=== PATIENT | female | born 1995 | race Caucasian/White ===

== ENCOUNTER 2017-03-21 19:49 | Emergency (ER) | payer BC ==
[~2017-03-21] VITALS: Ht 160 cm; Wt 77.1 kg
[~2017-03-21 19:49] MED LIST: ABILIFY5 MG PO; AMOXICILLIN500 M2 PO; AMOXIL250 MG/5 M PO; AMOXIL500 MG PO; BENADRYL25 MG PO; BUSPAR5 MG PO; CLARITIN10 MG PO; IBU-6600 MG PO; MACROBID100 M1 PO; OMNICEF125 MG/5 M PO; PREDNISONE5 MG PO; TYLENOL W/CODE480 ML PO; WELLBUTRIN75 MG PO; ZANTAC 150150 MG PO
[2017-03-21 19:57] VITALS: BP 127/89
[2017-03-21] MEDS ORDERED: MEDROL DOSEPAK4 MG PO (22:25)
[2017-03-21] MEDS ORDERED: PEPCID20 MG PO (22:25)
[2017-03-21] MEDS ORDERED: BENADRYL ALLERG25 M5 PO (22:25)
== END 2017-03-21 23:40 | disposition home or self-care (01) ==
LOC: ED 19:49
DX: T78.40XA Allergy, unspecified, initial encounter (principal); Z88.2 Allergy status to sulfonamides; Z79.899 Other long term (current) drug therapy; X58.XXXA Exposure to other specified factors, initial encounter

== ENCOUNTER 2017-12-10 13:26 | Emergency (ER) | payer BC ==
[~2017-12-10] VITALS: Ht 157.4 cm; Wt 82.1 kg
[~2017-12-10 13:26] MED LIST changes: +BENADRYL ALLERG25 M5 PO; +MEDROL DOSEPAK4 MG PO; +PEPCID20 MG PO
[2017-12-10 13:45] VITALS: BP 137/82
[2017-12-10 14:21] LABS: BASO % 0.3 % (0.0-1.0); EOS % 0.3 % (1.0-4.0); HEMATOCRIT 42.4 % (37.0-47.0); HEMOGLOBIN 14.1 g/dl (12.0-16.0); LYMPH # 1.2 10*3/uL (1.3-4.4); LYMPH % 12.9 % (27.0-41.0); MEAN CELL VOLUME 85.5 fl (81.0-99.0); MEAN CORPUSCULAR HGB 28.4 pg (27.0-31.0); MEAN CORPUSCULAR HGB CONC 33.3 g/dl (33.0-37.0); MEAN PLATELET VOLUME 10.7 fl (9.6-12.3); MONO # 0.4 10*3/uL (0.1-1.0); MONO % 4.7 % (3.0-9.0); NEUT # 7.6 10*3/uL (2.3-7.9); NEUT % 81.5 % (47.0-73.0); PLATELET COUNT AUTOMATED 259 10*3/uL (130-400); RED BLOOD COUNT 4.96 10*6/uL (4.10-5.10); RED CELL DISTRI WIDTH 12.4 % (0-14.5); WHITE BLOOD COUNT 9.4 10*3/uL (4.8-10.8)
[2017-12-10 14:39] LABS: ALBUMIN 4.3 gm/dl (3.1-4.5); ALKALINE PHOSPHATASE 101 U/L (45-117); BUN 10 mg/dl (7-24); CHLORIDE 105 mmol/L (98-107); CREATININE 0.83 mg/dL (0.55-1.02); POTASSIUM 3.6 mmol/L (3.5-5.1); SGOT/AST 17 IU/L (3-35); SGPT/ALT 27 U/L (12-78); SODIUM 139 mmol/L (136-145); TOTAL PROTEIN 7.9 gm/dL (6.4-8.2)
[2017-12-10 14:47] LABS: B-hCG (QUALITATIVE) NEGATIVE (NEGATIVE)
[2017-12-10 16:17] LABS: BILIRUBIN NEGATIVE (NEGATIVE); BLOOD NEGATIVE (NEGATIVE); CLARITY SL CLOUDY (CLEAR); COLOR YELLOW (YELLOW); GLUCOSE NEGATIVE (NEGATIVE); KETONE 2+ (NEGATIVE); LEUKO ESTERASE NEGATIVE (NEGATIVE); NITRITE NEGATIVE (NEGATIVE); PH 8.5 (5.0-9.0); SPECIFIC GRAVITY 1.015 (1.005-1.030)
[2017-12-10 16:27] LABS: URINE AMPHETAMINES < 1000 (1000ng/ml); URINE BARBITURATES < 200 (200ng/ml); URINE BENZODIAZEPINES < 200 (200ng/ml); URINE CANNABINOIDS (THC) < 50 (50ng/ml); URINE COCAINE < 300 (300ng/ml); URINE METHADONE < 300 (300ng/ml); URINE OPIATES < 300 (300ng/ml)
[2017-12-10 16:32] LABS: BACTERIA 1+; EPITHELIAL CELLS TNTC; WBC 21-30 wbc/hpf (0-5)
[2017-12-10 16:35] LABS: URINE PHENCYCLIDINE < 25 (25ng/ml)
== END 2017-12-10 17:40 | disposition home or self-care (01) ==
LOC: ED 13:26
PROVIDERS: Emergency Medicine
DX: F32.9 Major depressive disorder, single episode, unspecified (principal); R45.851 Suicidal ideations; F41.9 Anxiety disorder, unspecified; Z79.899 Other long term (current) drug therapy; Z88.2 Allergy status to sulfonamides

== ENCOUNTER 2018-10-14 13:59 | Emergency (ER) | payer BC ==
[2018-10-14 15:00] VITALS: BP 136/82
[2018-10-14] MEDS ORDERED: Motrin,Rufen800 MG PO (16:14)
== END 2018-10-14 16:20 | disposition home or self-care (01) ==
LOC: ED 13:59
DX: S00.01XA Abrasion of scalp, initial encounter (principal); Z88.2 Allergy status to sulfonamides; Z79.899 Other long term (current) drug therapy; V89.0XXA Person injured in unspecified motor-vehicle accident, nontraffic, initial encounter; Y93.01 Activity, walking, marching and hiking; Y92.481 Parking lot as the place of occurrence of the external cause; Y99.8 Other external cause status